=== PATIENT | male | born 1985 | race Two or more races ===

== ENCOUNTER 2024-08-12 10:44 | Emergency (ER) | payer OTHER ==
[~2024-08-12] VITALS: Ht 175.3 cm; Wt 90.7 kg
[2024-08-12] MEDS ORDERED: ACETAMINOPHEN WITH CODEINE 1 UDTAB TABLET PO ONE (13:30)
[2024-08-12] MEDS ORDERED: KETOROLAC TROMETHAMINE 60 MG VIAL IM ONE ×2 (13:30→14:07)
[2024-08-12 15:33] LABS: CALCIUM 9.4 mg/dL (8.5-10.1); CREATININE SERUM 0.96 mg/dL (0.70-1.30); GFR 88.63; POTASSIUM 5.31 mEq/L (3.5-5.1)
[2024-08-12 15:39] LABS: HEMATOCRIT 44.3 % (39.0-48.0); HEMOGLOBIN 14.9 g/dL (13-16.00); MEAN CELL VOLUME 89.2 fL (80.0-100.00); MEAN CORPUSCULAR HEMOGLOBIN 30.1 pg (27.00-32.0); MEAN CORPUSCULAR HGB CONC 33.7 g/dl (32.0-36.0); PLATELET COUNT 268 K/uL (150-450); RED BLOOD COUNT 4.96 M/uL (4.00-6.00); RED CELL DISTRIBUTION WIDTH 13.1 % (11.5-14.5)
== END 2024-08-12 17:32 | disposition home or self-care (01) ==
LOC: ER 10:47
PROVIDERS: Emergency Medicine
DX: M54.50 Low back pain, unspecified (principal)